=== PATIENT | female | born 1985 | race Two or more races ===

== ENCOUNTER 2023-11-07 15:07 | Emergency (ER) | payer OTHER ==
[~2023-11-07] VITALS: Ht 157.5 cm; Wt 79.4 kg
[2023-11-07] MEDS ORDERED: FAMOTIDINE/PF 20 MG/2 ML VIAL IV PUSH STA (16:30)
[2023-11-07 17:19] LABS: HEMOGLOBIN 13.4 g/dL (12.0-15.00); RED BLOOD COUNT 4.48 M/uL (4.00-6.00)
[2023-11-07 17:20] LABS: HEMATOCRIT 39.1 % (36.0-45.00); MEAN CELL VOLUME 87.2 fL (80.00-100.00); MEAN CORPUSCULAR HEMOGLOBIN 29.8 pg (27.00-32.0); MEAN CORPUSCULAR HGB CONC 34.2 g/dl (32.0-36.0); PLATELET COUNT 310 K/uL (150-450); RED CELL DISTRIBUTION WIDTH 14.4 % (11.5-14.5)
[2023-11-07 17:23] LABS: URINE APPEARANCE Clear; URINE BILIRRUBIN Negative (NEGATIVE); URINE BLOOD Negative; URINE COLOR Yellow; URINE GLUCOSE Negative (NEGATIVE); URINE LEUKOCYTE Negative; URINE NITRATE Negative; URINE PROTEIN Negative (NEGATIVE); URINE UROBILINOGEN 0.2 E.U./dl
[2023-11-07 17:27] LABS: URINE BACTERIA 573.1 uL (0.0-1933); URINE EPITHELIAL CELLS 17.7 uL (0.0-38.8); URINE RBC 2.1 uL (0.0-20.8); URINE WBC 2.4 uL (0.0-23.2)
[2023-11-07 17:43] LABS: ALBUMIN 3.4 gm/dL (3.4-5.0); BILIRUBIN TOTAL 0.36 mg/dL (0.3-1.2); CALCIUM 9.3 mg/dL (8.5-10.1); CREATININE SERUM 1.06 mg/dL (0.55-1.02); GFR 58.65; GLOBULINA 4.1 G/DL (2.4-3.5); POTASSIUM 3.62 mEq/L (3.5-5.1); TOTAL PROTEIN 7.5 gm/dL (6.4-8.2)
== END 2023-11-07 19:56 | disposition home or self-care (01) ==
LOC: ER 15:08
PROVIDERS: General Practice
DX: R10.31 Right lower quadrant pain (principal); N20.0 Calculus of kidney; Z88.8 Allergy status to other drugs, medicaments and biological substances

== ENCOUNTER 2024-06-03 10:18 | Emergency (ER) | payer OTHER ==
[~2024-06-03] VITALS: Ht 157.5 cm; Wt 81.6 kg
[2024-06-03 10:28] VITALS: BP 120/86; O2SAT 99
== END 2024-06-03 14:45 | disposition home or self-care (01) ==
LOC: ER 10:19
DX: I87.2 Venous insufficiency (chronic) (peripheral) (principal)

== ENCOUNTER → 2024-09-24 | Emergency (ER) | payer OTHER ==
[~2024-09-24] VITALS: Ht 157.5 cm; Wt 76.2 kg
[~2024-09-24] MED LIST: PROPANOLOL; PROTONIX40 MG PO
[2024-09-24 22:37] VITALS: BP 93/66; O2SAT 98
== END | disposition left against medical advice (07) ==
LOC: ER 22:25
DX: Z53.21 Procedure and treatment not carried out due to patient leaving prior to being seen by health care provider (principal)